=== PATIENT | female | born 1930 | race Caucasian/White ===

== ENCOUNTER 2018-11-02 18:18 | Observation (INO) ==
[2018-11-02] MEDS ORDERED: PROPRANOLOL 1 MG/ML VIAL IV ONE (18:33)
[2018-11-02] MEDS ORDERED: METOPROLOL TARTRATE 5 MG/5 ML VIAL IV ONE ×2 (18:40→19:15)
--- NOTE | 2018-11-02 18:56 | Cat Scan Report ---
CLINICAL INFORMATION: Acute stroke symptoms COMPARISON: None. TECHNIQUE: 2.5 mm helical slices were obtained in the skull base to vertex. Following reconstruction, axial reformatted images were reviewed at bone and parenchymal windows. The exam was performed using radiation dose optimization techniques including, but not limited to, automated exposure control, adjustment of the mA and/or kV according to patient size and use of iterative reconstruction technique. FINDINGS: The ventricles, sulci, fissures, and cisterns are symmetrically enlarged compatible with moderate atrophy - no extra-axial fluid collections or mass appreciated. Patchy chronic ischemic changes or white matter expected for age. There is no intracerebral hemorrhage, mass effect or edema. Right suboccipital craniotomy changes noted. IMPRESSION: Moderate atrophy and chronic ischemic changes in the deep cerebral white matter. No acute findings. Interpreted and Authenticated by: Bhupendra Parry 11/02/18
[2018-11-02 19:41] LABS: Basophils # (Auto) 0.1 K/mcL (0.0-0.3); Basophils % (Auto) 0.6 % (0.0-2.0); Eosinophils # (Auto) 0.2 K/mcL (0.0-0.7); Eosinophils % (Auto) 1.7 % (0.0-7.0); Granulocytes % (Auto) 56.2 % (38.0-78.0); Lymphocytes # (Auto) 3.7 K/mcL (1.5-4.8); Lymphocytes % (Auto) 32.3 % (15.5-49.0); Mean Corpuscular HGB Conc 32.4 g/dL (31.0-36.0); Monocytes # (Auto) 1.1 K/mcL (0.1-0.9); Monocytes % (Auto) 9.2 % (1.0-12.0); Platelet Count 227 K/mcL (140-440); RBC 4.82 M/mcL (4.00-5.20); Red Cell Distribution Width 14.8 % (11.5-14.5)
[2018-11-02 20:03] LABS: ALT/SGPT 20 U/l (0-40); Albumin/Globulin Ratio 1.2 (1.0-2.3); Alkaline Phosphatase 120 U/L (39-117); Blood Urea Nitrogen 15 mg/dl (8-23)
[2018-11-02 20:42] LABS: Appearance,Urine CLEAR; Bacteria,Urine 0 /hpf (0); Bilirubin,Urine NEG (NEG); Color,Urine STRAW; Glucose,Urine (UA) NEGATIVE (NEG); Leukocyte Esterase,Urine 25 /uL (NEG); Protein,Urine NEG (NEG); Specific Gravity,Urine 1.006 (1.000-1.035); Urine Blood 0.2 mg/dL (<0.03); Urine RBC 2 /hpf (0-1); Urine Squamous Epithelial Cell < 1 /hpf (0-4); Urine WBC 6 /hpf (0-4); Urobilinogen,Urine NEG (NEG)
[2018-11-02] MEDS ORDERED: CLOPIDOGREL 75 MG TABLET PO ONE (21:01)
--- NOTE | 2018-11-02 21:08 | Internal Med History&Physical ---
Medical - H&P: HPI Patient information: Note initiated : 11/02/18 at 9:06 pm Service Date, if different from initiated Date: [] Patient: Marlee Peraza a 88 y/o F admitted on for Headache, Vision loss, Nausea, 1130am. Chief Complaint: [] Chief complaint: Headache and vision loss History of present illness: Ms. Peraza is a 88 year old F presents to the ER with rapid onset right-sided vision changes that was initially short-lived and started around 1130 this morning. However patient did not seek medical attention and did not call her daughter. She was brought in to the ER by her daughter after she came back from work around 445 and and found out about her symptoms. Per daughter her speech was slurred and was not acting her normal self. Initial workup was significant for TIA symptoms. NIH score 1, most of symptoms have resolved. Patient underwent CT head noncontrast/CT angiogram head and neck. Stroke neurologist at [facility] was consulted. Recommended TIA workup including MRI in addition to initiation of Plavix as patient is already on aspirin. Subsequently hospitalist service was consulted At the time of evaluation patient is alert oriented. She denies active symptoms . She denies headache chest pain lightheadedness dizziness neck stiffness photophobia. She describes headache at the time of onset of symptoms as 6 out of 10 diffuse. She denies unilateral weakness, incontinence, seizure episode. Per records from the ER patient was not acting her normal self and daughter found her in the evening and subsequently was brought into the ER. Besides that patient denies fever chills, cough, productive sputum, dysuria or diarrhea Review of systems 10 point review of system was performed and is negative except for one discussed above Medical - H&P: PMH Medical history: Abnormal small bowel motility (Chronic) Jejunal thickening, stable on CT scan x 2 Transient visual loss (Chronic 08/05/14) Tobacco abuse (Chronic 08/13/13) TMJ arthralgia (Chronic) R Spinal stenosis of lumbar region (Chronic) Osteoporosis (Chronic) Osteoarthrosis (Chronic) Neuropathy, lower extremity (Chronic) Microscopic hematuria (Chronic 08/05/14) Systemic lupus erythematosus (Chronic) 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 Hemorrhoids (Chronic) Constipation (Chronic) stable with docusate. advised good hydration and high fiber diet. Colon polyps (Chronic) AP/HP Chronic pain (Chronic) COPD (chronic obstructive pulmonary disease) (Chronic) Bladder spasm (Chronic) Diverticulitis of colon (Inactive) Drug-induced nausea and vomiting (Inactive) Hematuria, microscopic (Inactive 10/07/14) noted on UA, as per pt this is a chr issue and has been worked up in the past. no rbc noted on ua, Pre-syncope (Inactive) HOlter neg, only pvc, echo shows normal lvef, no significant valvular abnormality. No recurrence of symptoms since last visit, monitor for now, if more episodes, get a 30 day monitor. Urinary incontinence (Inactive) Urinary retention (Inactive) Surgical history: istory of colonoscopy with polypectomy (Chronic 01/19/12) History of tubal ligation (Resolved) History of (Inactive) History of appendectomy (Inactive) History of arthroscopy (Inactive) R knee History of breast biopsy (Inactive) Right History of cataract surgery (Inactive) Bilateral History of discectomy (Inactive) 3 level lumbar History of intraocular lens implant (Inactive) Bilateral Pertinent family history: Unknown Chronic obstructive pulmonary disease Atherosclerosis of coronary artery Sister Cerebrovascular accident Diabetes mellitus Acute myocardial infarction Mother , at 96 years old Diabetes mellitus Essential hypertension Acute myocardial infarction Father , from Colon Cancer at 62 years old Family history of malignant neoplasm of gastrointestinal tract Brother Acute myocardial infarction Social history: smoking status: Current every day smoker tobacco type: cigarettes per day: 6 pack-years: 55 alcohol intake frequency: does not drink substance use type: does not use Medical - H&P: Meds Home Medications Medication Instructions Recorded Confirmed Type aspirin 81 mg tablet,delayed 81 mg PO QDAY tab 03/27/15 11/02/18 History release cholecalciferol (vitamin D3) 2,000 2,000 unit PO QDAY cap 03/27/15 11/02/18 History unit capsule cyanocobalamin (vit B-12) 1,500 1,500 mcg PO QDAY 12/09/16 11/02/18 History mcg disintegrating tablet losartan 50 mg tablet 75 mg PO QDAY #135 tab 08/01/18 11/02/18 Rx atorvastatin 40 mg tablet 40 mg PO QHS #90 tab 08/18/18 11/02/18 Rx Allergies Allergy/AdvReac Type Severity Reaction Status Date / Time No Known Drug Allergies Allergy Verified 11/02/18 18:22 Medical - H&P: Exam - Constitutional Vitals: Temp Pulse Resp BP Pulse Ox 97.2 F 71 16 151/84 94 11/02/18 18:19 11/02/18 20:53 11/02/18 20:53 11/02/18 20:50 11/02/18 20:53 General appearance: no acute distress Exam: Head normocephalic Eye movement symmetric Oral cavity dry No ear nose discharge Neck no lymphadenopathy S1-S2 regular rhythm, ejection systolic murmur grade 1 Diminished breath sounds bases Abdomen soft Lower extremity no cyanosis clubbing Skin no suspicious lesion Psych alert cooperative Neuro no unilateral weakness, normal heart function Medical - H&P: Reslt - Labs CBC & Chem 7: 11/03/18 04:16 11/03/18 04:16 Labs: Short CBC 11/02/18 Range/Units 18:50 WBC 11.5 H (4.5-11.0) K/mcL Hgb 14.2 (12.0-15.0) g/dL Hct 43.9 (36.0-48.0) % Plt Count 227 (140-440) K/mcL BMP 11/02/18 18:50 Sodium 138 Potassium 3.9 Chloride 100 Carbon Dioxide 25 BUN 15 Creatinine 0.7 Glucose 94 Calcium 9.6 Cardiac Enzymes 11/02/18 Range/Units 18:50 Troponin T < 0.01 (0-0.03) ng/ml Liver Function 11/02/18 Range/Units 18:50 Total Bilirubin 0.3 (0.0-1.0) mg/dL AST 24 (0-37) U/l ALT 20 (0-40) U/l Alkaline Phosphatase 120 H (39-117) U/L Albumin 4.0 (3.2-5.2) gm/dL Urine 11/02/18 Range/Units 19:59 Urine Color Straw Urine Appearance Clear Urine pH 7.0 (5.0-9.0) Ur Specific [place] 1.006 (1.000-1.035) Urine Protein Neg (NEG) mg/dL Urine Glucose (UA) Negative (NEG) mg/dL Medical - H&P: A/P (1) TIA (transient ischemic attack) Current visit: Yes Status: Acute * TIA-continue workup including MRI brain/echocardiogram, start Plavix, continue statin. Telemetry monitoring to rule out A. fib. Optimize blood pressure control. PT OT ST eval * HTN-maintain permissive hypertension for 24 hours. * HLD -continue statin * DJD * DVT prophylaxis- heparin * DNR PLAN * ECHO with bubble study * MRI brain * Plavix/ Statin * PT/OT/ST Eval * Keep blood pressure < 180
--- NOTE | 2018-11-02 21:20 | Emergency Department Note ---
Neuro HPI - General Chief Complaint: Stroke Symptoms Stated Complaint: Headache, Vision loss, Nausea, 1130am Time Seen by Provider: 11/02/18 18:20 Source: patient Mode of arrival: ambulatory Limitations: no limitations - History of Present Illness HPI Narrative: The patient is an 88-year-old female who presents today for concern of vision changes and headache. She reports that around 11:30 AM today she developed acute right vision changes and reports that there were "broken colors" in her vision. This lasted approximately 3 minutes before going away. It was also associated with a headache. The patient reports that she didn't take any medicine besides down on her couch. Her daughter came after work to visit her and when the patient explain her symptoms the daughter didn't think that she was acting quite right and brought her in for evaluation. The patient any arm or leg weakness. She is oriented to person place and situation. Endorses some nausea but no vomiting. Does have hypertension and takes her medication, losartan 50 mg a day as well as a daily aspirin. She does live alone. - Related Data Home Medications: Home Medications Medication Instructions Recorded Confirmed aspirin 81 mg tablet,delayed 81 mg PO QDAY tab 03/27/15 11/02/18 release cholecalciferol (vitamin D3) 2,000 2,000 unit PO QDAY cap 03/27/15 11/02/18 unit capsule cyanocobalamin (vit B-12) 1,500 1,500 mcg PO QDAY 12/09/16 11/02/18 mcg disintegrating tablet Previous Rx's Medication Instructions Recorded losartan 50 mg tablet 75 mg PO QDAY #135 tab 08/01/18 atorvastatin 40 mg tablet 40 mg PO QHS #90 tab 08/18/18 Allergies/Adverse Reactions: Allergies Allergy/AdvReac Type Severity Reaction Status Date / Time No Known Drug Allergies Allergy Verified 11/02/18 18:22 Review of Systems All systems ED: reviewed and negative except as stated. Past Medical History - Past Medical History Attestation: Yes: The following information was validated with the patient. 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 Surgical history ED: Reports: appendectomy, breast surgery (biopsy), , cataract, orthopedic, other (discectomy), other (intraocular lens, tubal ligation) - Social History smoking status: Current every day smoker Alcohol use: Reports: None Drug use: Reports: none Physical Exam Limitations: no limitations General appearance: alert, in no apparent distress Head: atraumatic, normocephalic Eye: Present: normal appearance ENT: normal exam Neck: Present: normal inspection Chest: Present: normal inspection Respiratory: Present: normal lung sounds bilaterally Cardiovascular: Present: regular rate, normal rhythm Abdominal: Present: soft, normal bowel sounds Extremities: Present: normal inspection Back: Present: normal inspection Neurological: Present: alert, oriented X3, CN II-XII intact, reflexes normal Patient oriented to: Present: person, place, time Speech: Present: fluid speech Cranial nerves: EOM function (II, III, IV, ): Normal, facial sensation (V): Normal, facial palsy (VII): Normal, gag reflex (IX): Normal, spinal accessory function (XI): Normal, tongue deviation (XII): Normal Motor strength - LUE: 5/5 Motor strength - RUE: 5/5 Motor strength - LLE: 5/5 Motor strength - RLE: 4/5 Sensory exam upper extremity: Normal: light touch Sensory exam lower extremity: Normal: light touch Coma Scale Eye Opening: Spontaneous Coma Scale Motor Response: Obeys Commands Coma Scale Verbal Response: Oriented Coma Scale Total: 15 Psychiatric: Present: normal affect, normal mood Skin: Present: warm, dry Course Course Narrative: Patient presents with acute neurologic symptoms earlier in the day including vision loss and headache that by the time she arrived in the emergency room have largely resolved. She was hypertensive with a systolic of 210. She was given 10 mg of IV metoprolol. Neurologic exam showed an NIH scale of 1 with slightly decreased strength in the right lower leg that the patient was endorsing that this is a chronic issue without [place] for her. Family was stating that she seemed to be stuttering a little and didn't think that she was quite acting like herself." A code stroke was ordered and a CT was initiated. - Reevaluation(s) Reevaluation #1: CT head negative. I reevaluated the patient and she continued to have no focal neurologic deficits. We did use tele stroke to discuss the case with the neurologist who feels that her symptoms are most consistent with a TIA. Recommended admission and workup including an MRI brain, CT a head and neck, echo, changing from aspirin to Plavix 75 mg a day. I did speak to the hospitalist who graciously agreed to admit the patient. Vital Signs Temperature 97.2 F 11/02/18 18:19 Pulse Rate 86 11/02/18 18:19 Respiratory Rate 18 11/02/18 18:19 Blood Pressure 210/89 11/02/18 18:19 Pulse Oximetry (%) 97 11/02/18 18:19 Temperature 97.2 F 11/02/18 18:19 Pulse Rate 69 11/02/18 21:09 Respiratory Rate 15 11/02/18 21:09 Blood Pressure 144/81 11/02/18 21:02 Pulse Oximetry (%) 97 11/02/18 21:09 Neuro Symptoms/Deficit - MDM Narrative Medical decision making narrative: Most consistent with a TIA. - Lab Data Lab results reviewed: Yes I reviewed the patient's lab results. Result diagrams: 11/02/18 18:50 11/02/18 18:50 Lab Results 11/02/18 11/02/18 11/02/18 Range/Units 18:50 18:50 18:50 WBC 11.5 H (4.5-11.0) K/mcL RBC 4.82 (4.00-5.20) M/mcL Hgb 14.2 (12.0-15.0) g/dL Hct 43.9 (36.0-48.0) % POC Hct 44.0 (36.0-48.0) % MCV 91.0 (80.0-100.0) fL MCH 29.5 (26.0-34.0) pg MCHC 32.4 (31.0-36.0) g/dL RDW 14.8 H (11.5-14.5) % Plt Count 227 (140-440) K/mcL MPV 9.9 (7.4-10.4) fL Gran % 56.2 (38.0-78.0) % Lymph % (Auto) 32.3 (15.5-49.0) % [place] % (Auto) 9.2 (1.0-12.0) % Eos % (Auto) 1.7 (0.0-7.0) % Baso % (Auto) 0.6 (0.0-2.0) % Gran # 6.4 (1.8-8.0) K/mcL Lymph # (Auto) 3.7 (1.5-4.8) K/mcL [place] # (Auto) 1.1 H (0.1-0.9) K/mcL Eos # (Auto) 0.2 (0.0-0.7) K/mcL Baso # (Auto) 0.1 (0.0-0.3) K/mcL POC PT (11.9-14.5) sec POC INR (0.9-1.2) APTT (20-37) sec POC Sodium 140 (133-145) mmol/L Sodium 138 (133-145) mmol/L POC Potassium 3.9 (3.3-5.1) mmol/L Potassium 3.9 (3.3-5.1) mmol/L POC Chloride 102 (96-108) mmol/L Chloride 100 (96-108) mmol/L Carbon Dioxide 25 (22-30) mmol/L POC Total CO2 28 (22-30) mmol/L Anion Gap 13.0 (8-16) POC BUN 16 (8-23) mg/dl BUN 15 (8-23) mg/dl Creatinine 0.7 (0.6-1.1) mg/dl POC Creatinine 0.8 (0.6-1.1) mg/dl GFR Calculation 78 Glucose 94 (70-105) mg/dL POC Glucose 91 (70-105) mg/dL Calcium 9.6 (8.6-10.4) mg/dl POC WB Ioniz Calcium 1.20 (1.16-1.32) mmol/L Total Bilirubin 0.3 (0.0-1.0) mg/dL AST 24 (0-37) U/l ALT 20 (0-40) U/l Alkaline Phosphatase 120 H (39-117) U/L Troponin T < 0.01 (0-0.03) ng/ml Total Protein 7.4 (5.9-8.4) gm/dL Albumin 4.0 (3.2-5.2) gm/dL Globulin 3.4 (2.2-3.7) gm/dL Albumin/Globulin Ratio 1.2 (1.0-2.3) Urine Color Urine Appearance Urine pH (5.0-9.0) Ur Specific [place] (1.000-1.035) Urine Protein (NEG) mg/dL Urine Glucose (UA) (NEG) mg/dL Urine Ketones (NEG) mg/dL Urine Occult Blood (<0.03) mg/dL Urine Nitrate (NEG) Urine Bilirubin (NEG) mg/dL Urine Urobilinogen (NEG) mg/dL Ur Leukocyte Esterase (NEG) /uL Urine RBC (0-1) /hpf Urine WBC (0-4) /hpf Ur Squamous Epith Cells (0-4) /hpf Urine Bacteria (0) /hpf Ur Culture Indicated? 11/02/18 11/02/18 Range/Units 19:05 19:59 WBC (4.5-11.0) K/mcL RBC (4.00-5.20) M/mcL Hgb (12.0-15.0) g/dL Hct (36.0-48.0) % POC Hct (36.0-48.0) % MCV (80.0-100.0) fL MCH (26.0-34.0) pg MCHC (31.0-36.0) g/dL RDW (11.5-14.5) % Plt Count (140-440) K/mcL MPV (7.4-10.4) fL Gran % (38.0-78.0) % Lymph % (Auto) (15.5-49.0) % [place] % (Auto) (1.0-12.0) % Eos % (Auto) (0.0-7.0) % Baso % (Auto) (0.0-2.0) % Gran # (1.8-8.0) K/mcL Lymph # (Auto) (1.5-4.8) K/mcL [place] # (Auto) (0.1-0.9) K/mcL Eos # (Auto) (0.0-0.7) K/mcL Baso # (Auto) (0.0-0.3) K/mcL POC PT 11.1 L (11.9-14.5) sec POC INR 0.9 (0.9-1.2) APTT 27 (20-37) sec POC Sodium (133-145) mmol/L Sodium (133-145) mmol/L POC Potassium (3.3-5.1) mmol/L Potassium (3.3-5.1) mmol/L POC Chloride (96-108) mmol/L Chloride (96-108) mmol/L Carbon Dioxide (22-30) mmol/L POC Total CO2 (22-30) mmol/L Anion Gap (8-16) POC BUN (8-23) mg/dl BUN (8-23) mg/dl Creatinine (0.6-1.1) mg/dl POC Creatinine (0.6-1.1) mg/dl GFR Calculation Glucose (70-105) mg/dL POC Glucose (70-105) mg/dL Calcium (8.6-10.4) mg/dl POC WB Ioniz Calcium (1.16-1.32) mmol/L Total Bilirubin (0.0-1.0) mg/dL AST (0-37) U/l ALT (0-40) U/l Alkaline Phosphatase (39-117) U/L Troponin T (0-0.03) ng/ml Total Protein (5.9-8.4) gm/dL Albumin (3.2-5.2) gm/dL Globulin (2.2-3.7) gm/dL Albumin/Globulin Ratio (1.0-2.3) Urine Color Straw Urine Appearance Clear Urine pH 7.0 (5.0-9.0) Ur Specific [place] 1.006 (1.000-1.035) Urine Protein Neg (NEG) mg/dL Urine Glucose (UA) Negative (NEG) mg/dL Urine Ketones Neg (NEG) mg/dL Urine Occult Blood 0.2 A (<0.03) mg/dL Urine Nitrate Neg (NEG) Urine Bilirubin Neg (NEG) mg/dL Urine Urobilinogen Neg (NEG) mg/dL Ur Leukocyte Esterase 25 A (NEG) /uL Urine RBC 2 H (0-1) /hpf Urine WBC 6 H (0-4) /hpf Ur Squamous Epith Cells < 1 (0-4) /hpf Urine Bacteria 0 (0) /hpf Ur Culture Indicated? Yes - Radiology Data Radiology results reviewed: Yes I reviewed the patient's radiology results. Disposition Pt seen by GROUP COUNSELOR/PA only: No Clinical Impression: TIA (transient ischemic attack), Hypertension, essential Disposition: Xfer As Inpt ([facility]) Condition: Good Referrals: Artemio Jose MD [Primary Care Provider] -
[2018-11-02] MEDS ORDERED: hydrALAZINE 20 MG/ML VIAL ONE (23:53)
[2018-11-03] MEDS ORDERED: POTASSIUM CHLORIDE 20 MEQ PACKET PO PRN (03:28)
[2018-11-03] MEDS ORDERED: BISACODYL 10 MG SUPP.RECT PR PRN (03:28)
[2018-11-03] MEDS ORDERED: ACETAMINOPHEN 325 MG TABLET PO PRN (03:28)
[2018-11-03] MEDS ORDERED: MAGNESIUM SULFATE 2 GM/50 ML BAG IV PRN (03:28)
[2018-11-03] MEDS ORDERED: MAGNESIUM HYDROXIDE 30 ML ORAL.SUSP PO PRN (03:28)
[2018-11-03] MEDS ORDERED: traZODone HCL 50 MG TABLET PO PRN (03:28)
[2018-11-03] MEDS ORDERED: ONDANSETRON 4 MG/2 ML VIAL IV PRN (03:28)
[2018-11-03] MEDS ORDERED: SIMVASTATIN 40 MG TABLET PO SCH (03:28)
[2018-11-03] MEDS ORDERED: hydrALAZINE 20 MG/ML VIAL IV PRN (03:28)
[2018-11-03] MEDS: 0.9 % SODIUM CHLORIDE 10 ML SYRINGE IV SCH ×2 (04:30→05:49)
[2018-11-03 05:27] LABS: Mean Cell Volume 91.1 fL (80.0-100.0); Mean Corpuscular HGB Conc 32.3 g/dL (31.0-36.0); Platelet Count 194 K/mcL (140-440); RBC 4.57 M/mcL (4.00-5.20); Red Cell Distribution Width 14.5 % (11.5-14.5)
[2018-11-03 05:51] LABS: ALT/SGPT 20 U/l (0-40); Albumin 3.6 gm/dL (3.2-5.2); Albumin/Globulin Ratio 1.1 (1.0-2.3); Alkaline Phosphatase 106 U/L (39-117); Bilirubin,Direct < 0.2 mg/dL (0.0-0.3); Blood Urea Nitrogen 17 mg/dl (8-23); C-Reactive Protein < 0.3 mg/dl (0.0-0.8); Gamma Glutamyl Transpeptidase 24 U/L (5-36); HDL Cholesterol 57 mg/dl (>40); LDL Cholesterol,Calculated 49 mg/dl (SEE CHART); Uric Acid 3.8 mg/dL (2.5-8.0)
--- NOTE | 2018-11-03 06:19 | Cat Scan Report ---
CLINICAL INFORMATION: TIA COMPARISON: None. TECHNIQUE: 80 cc of Isovue-300 were injected intravenously followed by 40 cc of normal saline flush. Using SmartPrep, 0.625 helical slices were obtained from the thoracic aortic arch through the platinum of [place]. Following reconstruction, 2.5 mm sagittal, coronal and axial reformatted images were processed. MIPS , 3-D volume rendering and CPR images were also constructed. The exam was performed using radiation dose optimization techniques including, but not limited to, automated exposure control, adjustment of the mA and/or kV according to patient size and use of iterative reconstruction technique. FINDINGS: The thoracic aortic arch is normal in contour and caliber. Aortic branching is conventional. 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 The brachiocephalic, both vertebral, common, internal and external carotid arteries are widely patent. Small amount calcific plaque are seen in the posterior wall of the proximal left internal carotid artery is incidentally noted. Images of the upper lungsshow mild enlargement of the pulmonary arteries suggesting pulmonary hypertension related to emphysema. The central pulmonary arteries 3 cm diameter. There are also scattered small nodules in the periphery of the upper lobes which are unchanged from the chest CT from 06/01/2018. These are likely due to benign granulomas. The soft tissues the neck are unremarkable. There is moderate degenerative change in the cervical spine. There is complete opacification of the left maxillary sinus compatible with severe sinusitis. IMPRESSION: 1. 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 Please correlate with decreased left arm blood pressures with respect to the right arm. Patient is at risk for subclavian steal syndrome. 2. Thoracic aortic arch, brachycephalic, all carotid and vertebral arteries are widely patent. 3. Severe left maxillary sinusitis 4. Centrilobular emphysema. Tiny nodules in the periphery of the upper lobes are unchanged from a chest CT from 06/01/2018 and likely represent granulomas Interpreted and Authenticated by: Bhupendra Parry 11/03/18
--- NOTE | 2018-11-03 06:23 | Cat Scan Report ---
CLINICAL INFORMATION: Headache visual loss - possible TIA COMPARISON: None. TECHNIQUE: 80 cc of Isovue-300 were injected intravenously , and using SmartPrep to maximize cerebral arterial opacification, 0.625 mm helical slices were obtained from the skull base through the cerebral vertex. Following reconstruction , sagittal, coronal and axial reformatted images were processed and reviewed at multiple windows and levels. 3D volume rendered and MIP images were acquired at a independent workstation. The exam was performed using radiation dose optimization techniques including, but not limited to, automated exposure control, adjustment of the mA and/or kV according to patient size and use of iterative reconstruction technique. 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 It extends superiorly and anteriorly. No other aneurysm identified. The remainder of the intracranial internal carotid, anterior, middle cerebral, intracranial vertebral, basilar and posterior cerebral arteries are branches are normal in contour and caliber. They are widely patent without significant stenosis or occlusion or other abnormality. The superficial and deep cerebral veins and deep venous sinuses are patent. IMPRESSION: 1. 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 2. The remaining intracerebral arterial vasculature is unremarkable - no evidence of significant stenosis or occlusion. Interpreted and Authenticated by: Bhupendra Parry 11/03/18
[2018-11-03 06:51] LABS: Band Neutrophils % 1 % (0-10); Eosinophils % (Manual) 1 % (0-7); Lymphocytes % 23 % (15-49); Monocytes % (Manual) 3 % (1-12); Platelet Estimate NORMAL (NORMAL); RBC Morphology ABNORM (NORMAL); Segmented Neutrophils % 72 % (38-78)
[2018-11-03 07:25] LABS: Erythrocyte Sedimentation Rate 8 mm/hr (0-20)
[2018-11-03] MEDS ORDERED: LORazepam 2 MG/ML VIAL IV ONE (07:25)
[2018-11-03] MEDS ORDERED: CYANOCOBALAMIN (VITAMIN B-12) 500 MCG TABLET PO ONE (09:00)
[2018-11-03] MEDS ORDERED: LOSARTAN 50 MG TABLET PO SCH (09:00)
[2018-11-03] MEDS ORDERED: MULTIVIT,THER IRON,CA,FA & MIN 1 TABLET PO SCH (09:00)
[2018-11-03] MEDS ORDERED: CYANOCOBALAMIN (VITAMIN B-12) 500 MCG TABLET PO SCH (09:00)
[2018-11-03] MEDS ORDERED: DOCUSATE SODIUM 100 MG CAPSULE PO SCH (09:00)
[2018-11-03] MEDS ORDERED: FOLIC ACID 1 MG TABLET PO SCH (09:00)
[2018-11-03] MEDS ORDERED: HEPARIN 5,000 UNIT/ML VIAL SQ SCH (09:00)
[2018-11-03] MEDS ORDERED: CLOPIDOGREL 75 MG TABLET PO SCH (09:00)
--- NOTE | 2018-11-03 10:50 | Discharge Summary ---
Medical - DS: Prov Patient information: Note initiated : 11/03/18 at 10:44 am Service Date, if different from initiated Date: [] Patient: Marlee Peraza 88 y/o F admitted on 11/02/18 for Headache, Vision loss, Nausea, 1130am. Chief Complaint: [] Date of admission: 11/02/18 23:01 Discharge date: 11/03/18 Primary care physician: Artemio Jose Consults: 11/02/18 Consult to Physician [CONS] Stat Comment: Consulting Provider: Juanito Tamez Reason For Exam: Physician to Consult Medical - DS: Meds - Discharge Medications Prescriptions: Clopidogrel Bisulfate [Plavix] 75 mg PO DAILY #30 tab Active and Home Medications: Home Medications cholecalciferol (vitamin D3) 2,000 unit capsule 2,000 unit PO QDAY cap 03/27/15 [History Confirmed 11/02/18 Last Taken Unknown] cyanocobalamin (vit B-12) 1,500 mcg disintegrating tablet 1,500 mcg PO QDAY 12/09/16 [History Confirmed 11/02/18 Last Taken Unknown] losartan 50 mg tablet 75 mg PO QDAY #135 tab 08/01/18 [Rx Confirmed 11/02/18 Last Taken Unknown] atorvastatin 40 mg tablet 40 mg PO QHS #90 tab 08/18/18 [Rx Confirmed 11/02/18 Last Taken Unknown] Clopidogrel Bisulfate [Plavix] 75 mg PO DAILY #30 tablet 11/03/18 [Rx Last Taken Unknown] Medical - DS: Hosp Hospital course: Discharge diagnosis * TIA-CT head/CT angiogram head neck unremarkable except for maxillary sinusitis. Continue statin/Plavix as per neurology recommendations. No telemetry events overnight. Echo PaHTN . EF 59% * Maxillary [id number] PCP/ENT as outpatient * HTN-will control her home medications * HLD -continue statin * DJD Brief hospital course Ms. Peraza is a 88 year old F presents to the ER with rapid onset right-sided vision changes that was initially short-lived and started around 1130 this morning. However patient did not seek medical attention and did not call her daughter. She was brought in to the ER by her daughter after she came back from work around 445 and and found out about her symptoms. Per daughter her speech was slurred and was not acting her normal self. Initial workup was significant for TIA symptoms. NIH score 1, most of symptoms have resolved. Patient underwent CT head noncontrast/CT angiogram head and neck. Stroke neurologist at [facility] was consulted. Recommended TIA workup including MRI in addition to initiation of Plavix as patient is already on aspirin. Subsequently hospitalist service was consulted At the time of evaluation patient is alert oriented. She denies active symptoms. She denies headache chest pain lightheadedness dizziness neck stiffness photophobia. She describes headache at the time of onset of symptoms as 6 out of 10 diffuse. She denies unilateral weakness, incontinence, seizure episode. Per records from the ER patient was not acting her normal self and daughter found her in the evening and subsequently was brought into the ER. Besides that patient denies fever chills, cough, productive sputum, dysuria or diarrhea 2/-patient doing well. Symptoms have fully resolved. No weakness or slurred speech or vision changes. No overnight telemetry events. On Plavix/statin as per the recommendations. Discharging today with advised to follow with PCP/neurology as outpatient. Continue Plavix/statin. Discharge diagnosis: . - Time Spent with Patient Total time spent providing and/or coordinating discharge services: Greater than 30 minutes Medical - DS: Exam - Constitutional Vitals: Vital Signs Temp Pulse Resp BP Pulse Ox 11/03/18 08:01 98.4 F 133/113 11/03/18 06:01 143/80 11/03/18 04:01 98.7 F 77 18 137/89 94 11/03/18 02:02 73 134/54 92 11/03/18 01:31 81 108/58 89 L 11/03/18 01:02 79 147/76 93 11/03/18 00:31 80 16 123/103 93 11/02/18 23:49 184/98 11/02/18 23:26 98.6 F 75 18 185/87 94 11/02/18 22:50 80 14 165/103 93 11/02/18 22:31 75 165/103 94 11/02/18 22:24 74 16 168/99 93 11/02/18 22:03 74 19 168/99 95 11/02/18 21:49 70 16 135/90 94 11/02/18 21:31 72 19 135/90 93 11/02/18 21:29 70 17 149/85 91 11/02/18 21:28 67 14 135/90 94 11/02/18 21:24 68 13 144/81 93 11/02/18 21:09 69 15 97 11/02/18 21:02 66 16 144/81 94 11/02/18 20:53 71 16 94 11/02/18 20:50 70 13 151/84 96 11/02/18 20:03 73 93 11/02/18 19:41 67 23 H 181/84 95 11/02/18 18:19 97.2 F 86 18 210/89 97 Intake and Output 11/02/18 11/03/18 11/03/18 21:59 05:59 13:59 Intake Total 500 Output Total 850 400 Balance -350 -400 Intake: Oral 500 Output: Void Amount 850 400 Other: Meal ED snack tray Percent of Meal Consumed 100% Feeding Ability Independent Urine Appearance Clear Urine Color Bright Yellow Urine Odor Strong Weight 128 lb 125 lb 8 oz Medical - DS: Data Labs on day of discharge: Labs from last 24 hours 11/03/18 11/03/18 11/02/18 04:16 04:16 19:59 WBC 9.5 RBC 4.57 Hgb 13.4 Hct 41.6 POC Hct MCV 91.1 MCH 29.4 MCHC 32.3 RDW 14.5 Plt Count 194 MPV 8.9 Gran % Lymph % (Auto) [place] % (Auto) Eos % (Auto) Baso % (Auto) Gran # Lymph # (Auto) [place] # (Auto) Eos # (Auto) Baso # (Auto) Total Counted 100 Seg Neutrophils % 72 Band Neutrophils % 1 Lymphocytes % 23 Monocytes % (Manual) 3 Eosinophils % (Manual) 1 Platelet Estimate Normal RBC Morphology Abnorm A RBC Fragments Occ A ESR 8 POC PT POC INR APTT POC Sodium Sodium 138 POC Potassium Potassium 4.0 POC Chloride Chloride 102 Carbon Dioxide 28 POC Total CO2 Anion Gap 8.0 POC BUN BUN 17 Creatinine 0.8 POC Creatinine GFR Calculation 67 Glucose 107 H POC Glucose Uric Acid 3.8 Calcium 9.4 POC WB Ioniz Calcium Phosphorus 3.2 Magnesium 1.8 Total Bilirubin 0.4 Direct Bilirubin < 0.2 GGT 24 AST 22 ALT 20 Alkaline Phosphatase 106 Lactate Dehydrogenase 190 Troponin T C-Reactive Protein < 0.3 Total Protein 6.8 Albumin 3.6 Globulin 3.2 Albumin/Globulin Ratio 1.1 Triglycerides 76 Cholesterol 121 LDL Cholesterol, Calc 49 Non-HDL Cholesterol 64 HDL Cholesterol 57 Urine Color Straw Urine Appearance Clear Urine pH 7.0 Ur Specific [place] 1.006 Urine Protein Neg Urine Glucose (UA) Negative Urine Ketones Neg Urine Occult Blood 0.2 A Urine Nitrate Neg Urine Bilirubin Neg Urine Urobilinogen Neg Ur Leukocyte Esterase 25 A Urine RBC 2 H Urine WBC 6 H Ur Squamous Epith Cells < 1 Urine Bacteria 0 Ur Culture Indicated? Yes 11/02/18 11/02/18 11/02/18 19:05 18:50 18:50 WBC RBC Hgb Hct POC Hct 44.0 MCV MCH MCHC RDW Plt Count MPV Gran % Lymph % (Auto) [place] % (Auto) Eos % (Auto) Baso % (Auto) Gran # Lymph # (Auto) [place] # (Auto) Eos # (Auto) Baso # (Auto) Total Counted Seg Neutrophils % Band Neutrophils % Lymphocytes % Monocytes % (Manual) Eosinophils % (Manual) Platelet Estimate RBC Morphology RBC Fragments ESR POC PT 11.1 L POC INR 0.9 APTT 27 POC Sodium 140 Sodium 138 POC Potassium 3.9 Potassium 3.9 POC Chloride 102 Chloride 100 Carbon Dioxide 25 POC Total CO2 28 Anion Gap 13.0 POC BUN 16 BUN 15 Creatinine 0.7 POC Creatinine 0.8 GFR Calculation 78 Glucose 94 POC Glucose 91 Uric Acid Calcium 9.6 POC WB Ioniz Calcium 1.20 Phosphorus Magnesium Total Bilirubin 0.3 Direct Bilirubin GGT AST 24 ALT 20 Alkaline Phosphatase 120 H Lactate Dehydrogenase Troponin T < 0.01 C-Reactive Protein Total Protein 7.4 Albumin 4.0 Globulin 3.4 Albumin/Globulin Ratio 1.2 Triglycerides Cholesterol LDL Cholesterol, Calc Non-HDL Cholesterol HDL Cholesterol Urine Color Urine Appearance Urine pH Ur Specific [place] Urine Protein Urine Glucose (UA) Urine Ketones Urine Occult Blood Urine Nitrate Urine Bilirubin Urine Urobilinogen Ur Leukocyte Esterase Urine RBC Urine WBC Ur Squamous Epith Cells Urine Bacteria Ur Culture Indicated? 11/02/18 18:50 WBC 11.5 H RBC 4.82 Hgb 14.2 Hct 43.9 POC Hct MCV 91.0 MCH 29.5 MCHC 32.4 RDW 14.8 H Plt Count 227 MPV 9.9 Gran % 56.2 Lymph % (Auto) 32.3 [place] % (Auto) 9.2 Eos % (Auto) 1.7 Baso % (Auto) 0.6 Gran # 6.4 Lymph # (Auto) 3.7 [place] # (Auto) 1.1 H Eos # (Auto) 0.2 Baso # (Auto) 0.1 Total Counted Seg Neutrophils % Band Neutrophils % Lymphocytes % Monocytes % (Manual) Eosinophils % (Manual) Platelet Estimate RBC Morphology RBC Fragments ESR POC PT POC INR APTT POC Sodium Sodium POC Potassium Potassium POC Chloride Chloride Carbon Dioxide POC Total CO2 Anion Gap POC BUN BUN Creatinine POC Creatinine GFR Calculation Glucose POC Glucose Uric Acid Calcium POC WB Ioniz Calcium Phosphorus Magnesium Total Bilirubin Direct Bilirubin GGT AST ALT Alkaline Phosphatase Lactate Dehydrogenase Troponin T C-Reactive Protein Total Protein Albumin Globulin Albumin/Globulin Ratio Triglycerides Cholesterol LDL Cholesterol, Calc Non-HDL Cholesterol HDL Cholesterol Urine Color Urine Appearance Urine pH Ur Specific [place] Urine Protein Urine Glucose (UA) Urine Ketones Urine Occult Blood Urine Nitrate Urine Bilirubin Urine Urobilinogen Ur Leukocyte Esterase Urine RBC Urine WBC Ur Squamous Epith Cells Urine Bacteria Ur Culture Indicated? Medical - DS: A/P - Patient/Caregiver Discharge Instructions Activity: increase activity as tolerated Diet: Regular Diet Additional Instructions: Continue statin and Plavix Prior medications before Follow-up primary care physician in 5-7 days--See scheduled appointment follow-up neurology in 2 weeks Reviewed the risk and side effect profile of Plavix that can include life- threatening bleed however benefits of CVA prevention outweighs the risk of bleed Prescriptions: Clopidogrel Bisulfate [Plavix] 75 mg PO DAILY #30 tab - Problem Maintenance (1) TIA (transient ischemic attack) Status: Acute - Follow up Plan Follow up with: Tati Mata MD [Physician] - (Dr. Mata office will contact you to schedule an appointment after reviewing your hospital visit.) Artemio Jose MD [Primary Care Provider] - 11/14/18 10:15 am (please check in at 10:00 am) Disposition: Xfer SNF Prognosis: Good Rehab Potential: Fair I certify that the patient requires SNF services: No Overall status at discharge: patient is progressing back to baseline Medical - DS: Qual - VTE Deep Vein Thrombosis/Pulmonary Embolism Present on Admission: No
--- NOTE | 2018-11-03 18:29 | Magnetic Resonance Report ---
CLINICAL INFORMATION: Headache visual loss and nausea question CVA COMPARISON: Brain MRI 11/22/2005 TECHNIQUE:Sagittal T1 FLAIR, axial T1 FLAIR, T2 FLAIR propeller, T2 propeller, gradient, diffusion, ADC and coronal T2 weighted images were acquired. FINDINGS: The ventricles, sulci, fissures and cisterns are symmetrically enlarged compatible with moderate age-related atrophy. This has progressed modestly since 2005. There is no subdural hemorrhage or extra-axial fluid collection or mass appreciated. Scattered chronic ischemic foci in the cerebral white matter with confluence in the periventricular region has progressed from previous study. No regions of restricted diffusion to suggest acute CVA. There is no hemorrhage, mass effect, or edema. Empty sella again noted. Complete opacification of the left maxillary sinus compatible with severe maxillary sinusitis. There is moderate fluid in the right mastoid air cells and minimal fluid left mastoid air cells. IMPRESSION: 1. No evidence for acute CVA, hemorrhage or other acute intracerebral abnormality 2. 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 This shows modest progression since 2006 MRI 3. Empty sella 4. Moderate right and mild left mastoiditis 5. Severe left maxillary sinusitis - 2 prior study Interpreted and Authenticated by: Bhupendra Parry 11/03/18
[2018-11-03] MEDS ORDERED: SENNOSIDES/DOCUSATE SODIUM 1 TAB TABLET PO SCH (21:00)
[2018-11-03] MEDS ORDERED: ATORVASTATIN 20 MG TABLET PO SCH (21:00)
[2018-11-04] MEDS ORDERED: CYANOCOBALAMIN (VITAMIN B-12) 500 MCG TABLET PO SCH (09:00)
== END 2018-11-03 17:05 ==
LOC: ED 18:18 → INTOOBSV 23:01 → ICU 23:01
PROVIDERS: ADMIT Internal Medicine; ATTEND Internal Medicine